=== PATIENT | female | born 1950 | race Two or more races ===

== ENCOUNTER 2024-02-03 06:53 | Emergency (ER) | payer OTHER ==
[~2024-02-03] VITALS: Ht 154.9 cm; Wt 66.7 kg
[2024-02-03 07:18] VITALS: BP 141/65; PULSE 108; RESP 16; O2SAT 97
[2024-02-03 09:44] LABS: Urine Bacteria FEW /hpf (None Seen); Urine Blood Negative /uL (Negative); Urine Clarity Clear (Clear); Urine Color Yellow (Yellow); Urine Mucus FEW (None Seen); Urine Protein, UAD 1+ (Negative); Urine Specific Gravity 1.025 (1.001-1.035); Urine Urobilinogen Normal (Negative); Urine WBC 3 /hpf (0 - 5); Urine pH 7.5 (5.0-9.0)
[2024-02-03] MEDS ORDERED: NITR-87 PO (10:08)
== END 2024-02-03 11:48 | disposition home or self-care (01) ==
LOC: ER 06:53
DX: S00.83XA Contusion of other part of head, initial encounter (principal); N39.0 Urinary tract infection, site not specified; M62.830 Muscle spasm of back; M54.2 Cervicalgia; I10 Essential (primary) hypertension; E11.9 Type 2 diabetes mellitus without complications; W18.09XA Striking against other object with subsequent fall, initial encounter; Y93.89 Activity, other specified; Y92.098 Other place in other non-institutional residence as the place of occurrence of the external cause; Y99.8 Other external cause status
CPT/HCPCS: 70450; 72125; 81001